=== PATIENT | female | born 1955 | race African-American/Black ===

== ENCOUNTER 2016-11-14 13:22 | Emergency (ER) ==
--- NOTE | 2016-11-14 14:31 | PROVIDER DOCUMENTATION ---
HPI-Syncope/Dizziness - General Source: patient - History of Present Illness-Syncope/Dizzy Prior Episodes: reports: single episode today Onset/Duration: reports: abrupt, just prior to arrival Timing: reports: improving Position/Activity at time of episode: reports: sitting Symptoms prior to episode: reports: lightheaded, nausea/vomiting. denies: chest pain, abdominal pain, confusion, diaphoresis Context: reports: lost consciousness Loss of Consciousness: brief (seconds) Location of injury. (If syncope resulted in an injury.): reports: none Current Symptoms: reports: weakness, dizzy. denies: fever, chills, abdominal pain, nausea, vomiting, lightheaded, blurred vision Similar symptoms previously: reports: previous diagnosis, workup for same problem Recently Seen Here or By Another Healthcare Provider: Yes <Valentino Ayoub - Last Filed: 11/14/16 14:27> <Saurabh De Paz - Last Filed: 11/14/16 15:35> - General Chief Complaint: Near Syncope Stated Complaint: syncope Time Seen by Provider: 11/14/16 13:26 Allergies/Adverse Reactions: Patient Allergies Allergy/AdvReac Type Severity Reaction Status Date / Time diphenhydramine HCl * Allergy HIVES Verified 11/13/16 00:19 [From Benadryl] Home Medications: Home Medication List Medication Instructions Recorded Confirmed Last Taken Type Clonidine [Catapres] 0.1 mg PO DAILY #30 tablet 11/13/16 11/14/16 Unknown Rx Diazepam [Valium] 2 mg PO BID PRN PRN #20 tablet 11/13/16 11/14/16 Unknown Rx Ondansetron HCl [Zofran] 1 tab PO Q6H PRN PRN #30 tablet 11/14/16 Unknown Rx - History of Present Illness-Syncope/Dizzy Nature of Presenting Problem: patient is a 61 y/o F that presents to the ER with generalized weakness and dizziness after having syncopal episode and vomiting. pt reports having dizziness for awhile and is currently being worked up by for it( MRI today). dizziness is worse with movement Denies fever/chills, chest pain, or shortness of breath. (Valentino Ayoub) Review of Systems - Adult - REVIEW OF SYSTEMS - ADULT Constitutional: reports: fatique. denies: chills, fever Eyes: denies: decreased vision, blurred vision, double vision Ears, Nose, Mouth & Throat: reports: no symptoms reported Cardiovascular: reports: syncope. denies: chest pain, palpitations Respiratory: denies: cough, shortness of breath, wheezing Gastrointestinal: denies: abdominal pain, diarrhea, nausea, vomiting Genitourinary: denies: dysuria, frequency, hematuria, urgency Musculoskeletal: reports: muscle weakness. denies: muscle aches Integumentary: reports: no symptoms reported Neurological: reports: dizziness/vertigo, syncope. denies: headache/migraines, seizure Psychiatric: reports: no symptoms reported Endocrine: reports: no symptoms reported Hematologic/Lymphatic: reports: no symptoms reported Allergic/Immunologic: reports: no symptoms reported All Other Systems: Reviewed and Negative <Valentino Ayoub - Last Filed: 11/14/16 14:27> Past History - Adult - PAST MEDICAL HISTORY-ADULT Review of Records: reports: Nursing Assessment Review, Medications Reviewed - PRIOR SURGERIES/PROCEDURES Surgical/Procedure History: reports: hysterectomy - IMMUNIZATION STATUS Childhood Immunizations: See Nurse Assessment Flu Vaccine: See Nurse Assessment - FAMILY HISTORY Family History: reviewed, not pertinent - SOCIAL HISTORY Smoking: non-smoker Living Situation: family <Valentino Ayoub - Last Filed: 11/14/16 14:27> Physical Exam-General - PHYSICAL EXAM-ADULT Initial Vital Signs Reviewed: Yes - CONSTITUTIONAL General Appearance: alert, no apparent distress - EYES Eyes: PERRL/EOMI, pink conjunctivae - HEAD, EARS, NOSE, MOUTH & THROAT HENMT: normocephalic/atraumatic, moist mucous membranes, normal ENT inspection - NECK Neck: non-tender, full range of motion, normal inspection. negative: lymphadenopathy - RESPIRATORY Respiratory: chest non-tender, lungs clear, normal breath sounds, no respiratory distress, no accessory muscle use - CARDIOVASCULAR Cardiovascular: regular rate, rhythm, no edema, no murmur - GASTROINTESTINAL (ABDOMEN) Abdominal Exam: normal bowel sounds, non tender, soft, no organomegaly, no pulsatile mass - MUSCULOSKELETAL Back Exam: normal inspection, no CVA tenderness, no vertebral tenderness Extremity: normal range of motion, normal inspection, no pedal edema, normal capillary refill, pelvis stable - SKIN Integumentary: normal color, normal turgor, warm/dry - 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 These instructions are being provided to you so you can have an understanding of how to care for yourself upon discharge. Upon discharge from the Emergency Department, you are responsible for making arrangements for follow-up care by a physician of your choice. Take all prescribed medications as directed. Return to the Emergency Department immediately for any new or worsening symptoms. You may call the Physician Referral phone number at [phone] to obtain a list of Physicians who are taking new patients. Prescriptions: Ondansetron HCl [Zofran] 1 tab PO Q6H PRN PRN #30 tablet PRN Reason: Vomiting Referrals: Kobi Perry MD [Primary Care Provider] - Call for Appoint. 1-2days Instructions: Dizziness Attestation - Scribe Verification/Attestation Scribe:: Valentino Ayoub Acting as Scribe for:: Saurabh De Paz Scribe documention review:: This chart was documented by a scribe and accurately reflects the service the provider performed and the decisions made by the provider. <Valentino Ayoub - Last Filed: 11/14/16 14:27> Physician Attestation - Physician Attestation I, the provider, attest to the following statement:: Saurabh De Paz Physician documentation Attestation:: This documentation recorded by the scribe accurately reflects the service I personally performed and the decisions made by me. <Valentino Ayoub - Last Filed: 11/14/16 14:27>
[2016-11-14] MEDS ORDERED: ZOFRAN ODT PO ONE (15:36)
== END 2016-11-14 15:49 | disposition home or self-care (01) ==
LOC: P.ED 13:22
DX: R42 Dizziness and giddiness (principal); R55 Syncope and collapse; R11.2 Nausea with vomiting, unspecified; M62.81 Muscle weakness (generalized); R53.83 Other fatigue; Z79.899 Other long term (current) drug therapy
CPT/HCPCS: 99282